=== PATIENT | female | born 1950 | race Caucasian/White ===

== ENCOUNTER → 2018-10-23 11:01 | Outpatient (CLI) | payer MEDICARE, OTHER, SELFPAY ==
[2018-10-27 16:01] LABS: Fecal Immunochemical Test NOT DETECTED
== END ==
PROVIDERS: Family Provider Physician Assistant; PCP Physician Assistant; Visit Provider Physician Assistant
DX: Z12.11 Encounter for screening for malignant neoplasm of colon (principal)
CPT/HCPCS: 82274

== ENCOUNTER → 2020-09-23 09:38 | Outpatient (CLI) | payer MEDICARE, SELFPAY ==
--- NOTE | 2020-09-23 | DI.MG.S_ITS ---
BILATERAL DIGITAL SCREENING MAMMOGRAM 3D/2D WITH CAD: 09/23/2020 CLINICAL: Routine screening. Family history of breast cancer. Comparison is made to exams dated: 09/07/2017 mammogram, 09/24/2015 mammogram, and 06/11/2007 mammogram - [facility]. There are scattered fibroglandular elements in both breasts. Current study was also evaluated with a Computer Aided Detection (CAD) system. No significant masses, calcifications, or other findings are seen in either breast. There has been no significant interval change. IMPRESSION: NEGATIVE There is no mammographic evidence of malignancy. A 1 year screening mammogram is recommended. This exam was interpreted at Station ID: [id number]. NOTE: For mammograms, a report in lay terms will be sent to the patient. Approximately 15% of breast malignancies will not be visualized mammographically. In the management of a palpable breast mass, a negative mammogram must not discourage biopsy of a clinically suspicious lesion. Electronically Signed By: Yony devi/ricardo:09/23/2020 12:54:37 letter sent: Normal Exam ACR BI-RADS Category 1: Negative 3341F
== END ==
PROVIDERS: Family Provider Physician Assistant; PCP Nurse Practitioner; Referring Provider Nurse Practitioner; Visit Provider Nurse Practitioner
DX: Z12.31 Encounter for screening mammogram for malignant neoplasm of breast (principal); Z80.3 Family history of malignant neoplasm of breast; M85.852 Other specified disorders of bone density and structure, left thigh; Z78.0 Asymptomatic menopausal state; Z87.891 Personal history of nicotine dependence
CPT/HCPCS: 77063; 77067; 77080

== ENCOUNTER → 2022-03-15 11:18 | Outpatient (CLI) | payer OTHER, SELFPAY ==
[2022-03-15 12:52] LABS: Hematocrit 40.4 % (36-46); Hemoglobin 13.6 g/dL (12.0-16.0); Mean Corpuscular HGB Conc 33.7 % (30-36); Mean Corpuscular Hemoglobin 30.1 PG (26-34); Mean Corpuscular Volume 89.5 fL (80-100); Platelet Count 217 X10^3/uL (150-400); Red Blood Cell Count 4.51 X10^6/uL (4.0-5.2); Red Cell Distribution Width 13.5 % (11.6-14.8); White Blood Cell Count 4.7 X10^3/uL (4.5-11.0)
[2022-03-15 13:21] LABS: Free T4, Direct Thyroxine 1.05 ng/dL (0.78-2.19)
[2022-03-15 13:50] LABS: Alanine Aminotransferase 18 IU/L (<35); Albumin 4.7 g/dL (3.5-5.0); Albumin Globulin Ratio 1.8 (1.0-2.8); Alkaline Phosphatase 51 U/L (38-126); Aspartate Aminotransferase 29 IU/L (14-36); Bilirubin Total 0.7 mg/dL (0.2-1.3); Blood Urea Nitrogen 13 mg/dL (7-17); Calcium 9.7 mg/dL (8.4-10.2); Carbon Dioxide 29 mmol/L (22-32); Chloride 103 mmol/L (98-107); Creatine Kinase 51 U/L (30-135); Estimated Glomerular Filt Rate > 60 mL/min (>60); Globulin 2.6 g/dL (1.7-4.1); Glucose 91 mg/dL (80-110); HEMOLYSIS < 15 (0-50); Potassium 4.3 mmol/L (3.4-5.1); Sodium 141 mmol/L (137-145); Total Protein 7.3 g/dL (6.3-8.2)
[2022-03-15 14:00] LABS: Troponin I < 0.012 ng/mL (0.01-0.034)
[2022-03-15 17:37] LABS: Creatinine Urine Random 12.5 mg/dL
[2022-03-15 18:59] LABS: Microalbumin Urine Random < 0.6 mg/dL (0-1.6)
== END ==
PROVIDERS: Family Provider Physician Assistant; PCP Nurse Practitioner; Referring Provider Nurse Practitioner; Visit Provider Nurse Practitioner
DX: R07.89 Other chest pain (principal)
CPT/HCPCS: 36415; 80053; 82043; 82550; 82570; 84439; 84443; 84481; 84484; 85027; 93005

== ENCOUNTER → 2022-03-24 11:41 | Outpatient (CLI) | payer OTHER, SELFPAY ==
--- NOTE | 2022-03-24 11:42 | DI.CT.S_ITS ---
PROCEDURE: CT LUNG LOW DOSE SCREENING INDICATIONS: History of smoking, chest pressure left TECHNIQUE: Noncontrast 2.0-2.5 mm thick sections acquired from the pulmonary apices to the posterior costophrenic angles. 7 mm thick axial MIP, and 5 mm coronal and sagittal reformats were then acquired. A low radiation dose technique was utilized. COMPARISON: None. FINDINGS: Image quality: Diagnostic, given the low radiation dose technique. Lungs and pleura: There is mild bilateral apical scarring. There is a 0.8 x 0.9 x 0.9 cm nodule at the lateral right lung base (series 3/image 309). There is a left lower lobe 8 mm in diameter nodule (series 3/image 255). Mediastinum: Heart size is normal. No pericardial effusion. No mediastinal adenopathy by size criteria. Thoracic aorta and central pulmonary arteries are normal in size. Esophagus is normal in caliber. No hiatal hernia. Bones and chest wall: No suspicious bony lesions. No vertebral body compression fractures. No axillary or supraclavicular adenopathy by size criteria. Thyroid gland is unremarkable. Abdomen: Visualized upper abdomen solid organs and bowel loops appear normal in the absence of contrast. IMPRESSION: 1. Solid 9 mm right and 8 mm left lower lobe pulmonary nodules. LUNG-RADS 4A; suspicious. Three-month follow-up CT recommended. Alternatively, PET-CT could be used. Dictated by: Albina Salazar M.D. on 03/24/2022 at 13:18 Approved by: Albina Salazar M.D. on 03/24/2022 at 13:28
== END ==
PROVIDERS: Family Provider Physician Assistant; PCP Nurse Practitioner; Referring Provider Nurse Practitioner; Visit Provider Nurse Practitioner
DX: R07.89 Other chest pain (principal); Z87.891 Personal history of nicotine dependence; R91.8 Other nonspecific abnormal finding of lung field
CPT/HCPCS: 71250

== ENCOUNTER → 2022-04-07 12:40 | Outpatient (CLI) | payer OTHER, SELFPAY ==
--- NOTE | 2022-04-07 12:42 | DI.MG.S_ITS ---
BILATERAL DIGITAL SCREENING MAMMOGRAM 3D/2D WITH CAD: 04/07/2022 CLINICAL: Routine screening. Family history of breast cancer. Comparison is made to exams dated: 09/23/2020 mammogram and 09/07/2017 mammogram - [facility]. There are scattered fibroglandular elements in both breasts. Current study was also evaluated with a Computer Aided Detection (CAD) system. No significant masses, calcifications, or other findings are seen in either breast. There has been no significant interval change. IMPRESSION: NEGATIVE There is no mammographic evidence of malignancy. A 1 year screening mammogram is recommended. This exam was interpreted at Station ID: [id number]. NOTE: For mammograms, a report in lay terms will be sent to the patient. Approximately 15% of breast malignancies will not be visualized mammographically. In the management of a palpable breast mass, a negative mammogram must not discourage biopsy of a clinically suspicious lesion. Electronically Signed By: Francisco javier/ricardo:04/07/2022 13:07:52 letter sent: Normal Exam ACR BI-RADS Category 1: Negative 3341F
== END ==
PROVIDERS: Family Provider Physician Assistant; PCP Nurse Practitioner; Referring Provider Nurse Practitioner; Visit Provider Nurse Practitioner
DX: Z12.31 Encounter for screening mammogram for malignant neoplasm of breast (principal); Z80.3 Family history of malignant neoplasm of breast
CPT/HCPCS: 77063; 77067

== ENCOUNTER → 2023-02-10 11:52 | Outpatient (CLI) | payer OTHER, SELFPAY | PROVIDERS: Family Provider Physician Assistant; PCP Nurse Practitioner; Referring Provider Surgery; Visit Provider Surgery | DX: K52.9 Noninfective gastroenteritis and colitis, unspecified (principal) | CPT/HCPCS: 87045; 87177; 87899 ==

== ENCOUNTER 2023-03-09 12:40 | Day surgery (SDC) | payer OTHER, SELFPAY ==
[2023-03-09] VITALS (7 sets, daily range): BP systolic 139–161; BP diastolic 73–87; PULSE 58–88; RESP 16–24; TEMP 36.2–36.6; O2SAT 99–100; BMI 21.1
--- NOTE | 2023-03-09 | PATH_ITS ---
[facility] Accession Number: [id number] No. of containers..04 Tissue . 01 Material submitted: . PART A: colon - COLON BIOPSIES PART B: colon - TRANSVERSE COLON BIOPSIES PART C: colon - LEFT COLON BIOPSIES PART D: rectum - RECTAL BIOPSIES . 01 Diagnosis: A-D. Colon, Transverse Colon, Left Colon, Rectum, Biopsies: Collagenous colitis. Negative for granulomas, dysplasia, and malignancy. [facility] 03/15/2023 1136 Local . 01 Electronically signed: . Paola Booth MD, Pathologist NPI- [id number] . 01 Gross description: . Part A: COLON BIOPSIES: Received in formalin are 2 fragment(s) of cohen, soft tissue measuring 0.2 x 0.2 x 0.2 cm to 0.3 x 0.3 x 0.2 cm submitted entirely in 1 cassette(s) Part B: TRANSVERSE COLON BIOPSIES: Received in formalin are 2 fragment(s) of cohen, soft tissue measuring 0.1 x 0.1 x 0.1 cm to 0.2 x 0.2 x 0.1 cm submitted entirely in 1 cassette(s) Part C: LEFT COLON BIOPSIES: Received in formalin are 2 fragment(s) of cohen, soft tissue measuring 0.2 x 0.2 x 0.2 cm to 0.3 x 0.1 x 0.1 cm submitted entirely in 1 cassette(s) Part D: RECTAL BIOPSIES: Received in formalin are 2 fragment(s) of cohen, soft tissue measuring 0.2 x 0.2 x 0.2 cm to 0.3 x 0.2 x 0.2 cm submitted entirely in 1 cassette(s) /RUDDY 03/13/2023 1934 Local . 01 Pathologist provided ICD-10: K52.89 . 01 CPT . 642682, 165244, 984161, 971378 Specimen Comment: A courtesy copy of this report has been sent to [phone] Performed at: 01 [facility] [address] [place] [address], [place], [place] [id number] MD Ankit Rockwell MD Phone: [phone]
[2023-03-09] MEDS: LACTATED RINGERS 1,000 ML 42 ML IV (13:38)
--- NOTE | 2023-03-09 14:25 | PM.PREOP ---
Pre-operative Note COVID-19 COVID-19 status: Not tested Interval Note History & Physical reviewed/Exam performed by Physician: Yes Changes to H&P: No ASA Class (for procedural sedation): II
--- NOTE | 2023-03-09 15:47 | PM.OP.COLON ---
Operative Date/Time/Diagnoses Date of procedure: 03/09/23 Time of procedure: 15:47 Pre-op diagnosis: Colon cancer screening and diarrhea Post-op diagnosis: same Procedure & Clinicians Study performed: Colonoscopy Same procedure as scheduled: Yes Surgeon: Adolph Sorensen Procedure Notes Procedure in detail: Surgeon: Adolph Sorensen MD Anesthesia: Priti Chandra DO Procedure: The patient was brought to the endoscopy suite, placed in left lateral decubitus position. The patient was connected to monitoring devices. A time-out was performed. Sedation was administered. Once the patient was adequately sedated, a digital rectal exam was performed and was normal. The scope was then inserted and advanced to the cecum where the appendiceal orifice was identified and photographed. The scope was then slowly withdrawn over greater than 6 minutes. The mucosa was thoroughly inspected. Random biopsies were taken from the right colon, transverse colon, left colon and rectum. There was rather significant sigmoid diverticulosis. The scope was retroflexed in the rectum. No other abnormalities were seen. The scope was straightened and removed. The patient was awakened and brought to recovery. Scope withdrawal time: 6 minutes Sedation time: 12 minutes EBL: 5 mL Findings: Sigmoid diverticulosis Post-procedure Disposition: PACU
--- NOTE | 2023-03-09 16:35 | SUR.PHASEII ---
pt states she is slightly nauseated and RN asked if she wanted anything for nausea. Pt states she feels fine and just wants to go home.
== END 2023-03-09 16:40 | disposition home or self-care (01) ==
PROVIDERS: Family Provider Physician Assistant; PCP Nurse Practitioner; Referring Provider Surgery; Visit Provider Surgery
PROC: 0DJD8ZZ Inspection of Lower Intestinal Tract, Via Natural or Artificial Opening Endoscopic (ICD-10-PCS; CPT 45378; principal; 2023-03-09 14:15)
DX: K52.831 Collagenous colitis (principal); K57.30 Diverticulosis of large intestine without perforation or abscess without bleeding
CPT/HCPCS: 45380; J2704

== ENCOUNTER → 2023-07-06 11:10 | Outpatient (CLI) | payer OTHER, SELFPAY ==
[2023-07-06 12:35] LABS: Add Manual Diff / Slide Review NO; Basophils Absolute Auto 0 /uL (0-100); Basophils Percent Auto 0.5 % (0-2); Eosinophils Absolute Auto 0 /uL (0-450); Eosinophils Percent Auto 0.7 % (2-4); Hematocrit 40.8 % (36-46); Lymphocytes Absolute Auto 1400 /uL (1100-4500); Lymphocytes Percent Auto 31.1 % (25-40); Mean Corpuscular HGB Conc 34.2 % (30-36); Mean Corpuscular Hemoglobin 30.3 PG (26-34); Mean Corpuscular Volume 88.5 fL (80-100); Monocytes Absolute Auto 500 /uL (0-900); Monocytes Percent Auto 10.5 % (3-14); Neutrophils Absolute Auto 2600 /uL (1500-7000); Neutrophils Percent Auto 57.2 % (50-75); Platelet Count 233 X10^3/uL (150-400); Red Cell Distribution Width 13.2 % (11.6-14.8); White Blood Cell Count 4.6 X10^3/uL (4.5-11.0)
[2023-07-06 13:02] LABS: Alanine Aminotransferase 18 IU/L (<35); Albumin 4.2 g/dL (3.5-5.0); Albumin Globulin Ratio 1.4 (1.0-2.8); Alkaline Phosphatase 60 U/L (38-126); Aspartate Aminotransferase 24 IU/L (14-36); BUN Creatinine Ratio 26.3 (6-22); Bilirubin Total 0.4 mg/dL (0.2-1.3); Blood Urea Nitrogen 15 mg/dL (7-17); Calcium 9.7 mg/dL (8.4-10.2); Carbon Dioxide 32 mmol/L (22-32); Chloride 101 mmol/L (98-107); Estimated Glomerular Filt Rate > 60 mL/min (>60); Globulin 3.1 g/dL (1.7-4.1); Glucose 104 mg/dL (80-110); HEMOLYSIS < 15 (0-50); Potassium 5.1 mmol/L (3.4-5.1); Sodium 139 mmol/L (137-145); Total Protein 7.3 g/dL (6.3-8.2)
[2023-07-06 13:28] LABS: TSH w/ Reflex to FT4 2.47 uIU/mL (0.47-4.68)
== END ==
PROVIDERS: Family Provider Physician Assistant; PCP Nurse Practitioner; Referring Provider Physician Assistant; Visit Provider Physician Assistant
DX: R19.7 Diarrhea, unspecified (principal); R63.4 Abnormal weight loss
CPT/HCPCS: 36415; 80053; 84443; 85025

== ENCOUNTER → 2023-07-06 11:13 | Outpatient (CLI) | payer OTHER, SELFPAY ==
--- NOTE | 2023-07-06 11:14 | DI.MG.S_ITS ---
BILATERAL DIGITAL SCREENING MAMMOGRAM 3D/2D WITH CAD: 07/06/2023 CLINICAL: Routine screening. Family history of breast cancer. Comparison is made to exams dated: 04/07/2022 mammogram, 09/23/2020 mammogram, and 09/07/2017 mammogram - [facility]. There are scattered areas of fibroglandular density in both breasts (category b / 25%-50% glandular tissue). Current study was also evaluated with a Computer Aided Detection (CAD) system. No significant masses, calcifications, or other findings are seen in either breast. There has been no significant interval change. IMPRESSION: NEGATIVE There is no mammographic evidence of malignancy. A 1 year screening mammogram is recommended. Based on the Tyrer Cuzick model (a risk assessment model) the patient's lifetime risk is 7.6% and her 10 year risk is 6.3%. According to the ACR, ACS, and NCCN guidelines, an annual breast MRI exam along with mammogram is recommended if the patient's lifetime risk is 20% or greater. This exam was interpreted at Station ID: [id number]. NOTE: For mammograms, a report in lay terms will be sent to the patient. Approximately 15% of breast malignancies will not be visualized mammographically. In the management of a palpable breast mass, a negative mammogram must not discourage biopsy of a clinically suspicious lesion. Electronically Signed By: Denisse huizar/ricardo:07/06/2023 17:04:12 letter sent: Normal Exam ACR BI-RADS Category 1: Negative 3341F
== END ==
PROVIDERS: Family Provider Physician Assistant; PCP Nurse Practitioner; Referring Provider Nurse Practitioner; Visit Provider Nurse Practitioner
DX: Z12.31 Encounter for screening mammogram for malignant neoplasm of breast (principal); Z80.3 Family history of malignant neoplasm of breast
CPT/HCPCS: 77063; 77067

== ENCOUNTER → 2023-09-14 15:00 | Outpatient (CLI) | payer OTHER, SELFPAY | PROVIDERS: Family Provider Physician Assistant; PCP Nurse Practitioner; Referring Provider Nurse Practitioner; Visit Provider Nurse Practitioner | DX: R19.5 Other fecal abnormalities (principal) | CPT/HCPCS: 87169 ==

== ENCOUNTER → 2023-09-15 10:27 | Outpatient (CLI) | payer OTHER, SELFPAY | PROVIDERS: Family Provider Physician Assistant; PCP Nurse Practitioner; Referring Provider Nurse Practitioner; Visit Provider Nurse Practitioner | DX: R19.5 Other fecal abnormalities (principal) | CPT/HCPCS: 87045; 87177; 87899 ==

== ENCOUNTER → 2023-09-25 09:00 | Outpatient (CLI) | payer OTHER, SELFPAY ==
[2023-09-25 10:42] LABS: Cholesterol 248 mg/dL (140-199); HDL Cholesterol 88 mg/dL (40-60); LDL Cholesterol Calculated 140 mg/dL (<100); Triglycerides 102 mg/dL (35-150)
--- NOTE | 2023-09-25 11:57 | DI.ECHO.S_ITS ---
[facility] +---------+ : : [address] : : : : [id number] : : : : Phone: [phone]---------+ Echocardiogram Report + + :Name: PAULO PERRY Study Date: 09/25/2023 Height: 66 in : :[facility] ReadingLocation: Weight: 127 lb : : Gender: Female BSA: 1.6 m2 : :: 1950 Age: 73 yrs BP: 134/88 mmHg: :Reason For Study: Cardiac Murmur : :Ordering Physician: MAHOGANY, : :MELISSA Performed By: Jana Ibarra : :Referring: MELISSA VIDES : + + Interpretation Summary Left ventricular ejection fraction is estimated to be 55. There are no obvious focal wall motion abnormalities noted but poor endocardial definition reduces the sensitivity for the detection of such. There is mild mitral regurgitation. There is mild to moderate aortic regurgitation. There is trace tricuspid regurgitation. Procedure: A two-dimensional transthoracic echocardiogram with color flow and Doppler was performed. The study quality was technically adequate. There is no prior echocardiogram noted for this patient. The patient was in normal sinus rhythm during the exam. Left Ventricle: The left ventricle is normal in size. Left ventricular ejection fraction is estimated to be 55. There are no obvious focal wall motion abnormalities noted but poor endocardial definition reduces the sensitivity for the detection of such. Diastolic parameters suggest a relaxation abnormality of the left ventricle, consistent with probable normal filling pressures. Right Ventricle: The right ventricle is normal in size and function. Atria: The left atrial size is normal. Right atrial size is normal. There is no Doppler evidence for an interatrial shunt. Mitral Valve: The mitral valve leaflets appear mildly thickened, but open well. There is no mitral valve stenosis. There is mild mitral regurgitation. Aortic Valve: The aortic valve is trileaflet. There is no aortic valve stenosis. There is mild to moderate aortic regurgitation. Tricuspid Valve: The tricuspid valve is normal. There is no tricuspid stenosis. There is trace tricuspid regurgitation. Pulmonic Valve: The pulmonic valve leaflets are thin and pliable; valve motion is normal. There is no pulmonic valvular stenosis. There is trace pulmonic regurgitation. Great Vessels: The aortic root is normal size. The ascending aorta is normal in size. The pulmonary artery is normal size. The IVC is of normal diameter and collapses greater than 50% with a sniff. This suggests a low right atrial pressure of 3 mm Hg. Pericardium/ Pleura There is no pericardial effusion. There is no pleural effusion. MMode/2D Measurements & Calculations LVIDd: 4.3 cm LVOT diam: 1.9 cm LVIDs: 3.0 cm Ao root diam: 3.0 cm FS: 30.2 % asc Aorta Diam: 3.1 cm EPSS: 0.40 cm IVSd: 0.70 cm LVPWd: 0.70 cm LV [place]. diameter/BSA (cm/m^2): 2.6 LV sys. diameter/BSA (cm/m^2): 1.8 LA A2 area: 13.7 cm2 RA area: 12.8 cm2 LA A4 area: 10.5 cm2 LA length (vol): 3.8 cm LA vol: 32.2 ml LA vol index: 19.5 ml/m2 RVD1 (basal): 3.3 cm LVLs ap4: 6.0 cm LVLd ap2: 8.2 cm TAPSE_phl: 2.3 cm LVLs ap2: 6.7 cm Doppler Measurements & Calculations Ao V2 max: 116.0 cm/sec LVOT Max Marlon: 82.5 cm/sec Ao V2 mean: 80.9 cm/sec LV V1 max P.7 mmHg Ao max P.0 mmHg LV V1 VTI: 19.9 cm Ao mean P.0 mmHg LAURYN(I,D): 2.0 cm2 Ao V2 VTI: 28.5 cm LAURYN(V,D): 2.0 cm2 sev ratio: 0.70 LAURYN indexed to BSA (cm^2/m^2): 1.2 MV E max marlon: 54.8 cm/sec TR max marlon: 206.0 cm/sec MV A max marlon: 77.1 cm/sec TR max P.0 mmHg MV E/A: 0.71 PA V2 max: 78.5 cm/sec Med Peak E' Marlon: 6.2 cm/sec PA V2 mean: 54.5 cm/sec E/E' med: 8.9 PA mean P.0 mmHg Lat Peak E' Marlon: 6.3 cm/sec PA pr(Accel): 19.6 mmHg E/E' lat: 8.8 E/e' average: 8.8 MV dec time: 0.30 sec SV(LVOT): 56.5 ml AV VR_phl: 0.71 LAURYN(VTI)/BSA_phl: 1.2 Reading Physician:01:34 PM
== END ==
PROVIDERS: Family Provider Physician Assistant; PCP Nurse Practitioner; Referring Provider Family Medicine; Visit Provider Family Medicine
DX: E78.5 Hyperlipidemia, unspecified (principal); R00.2 Palpitations; R01.1 Cardiac murmur, unspecified; I08.0 Rheumatic disorders of both mitral and aortic valves
CPT/HCPCS: 36415; 80061; 93306

== ENCOUNTER 2024-06-07 10:17 | Emergency (ER) | payer MEDICARE, SELFPAY ==
--- NOTE | 2024-06-07 10:25 | DI.RAD.S_ITS ---
PROCEDURE: XR ANKLE RT MIN 3V INDICATIONS: R lateral ankle pain after fall TECHNIQUE: 3 views of the ankle were acquired. COMPARISON: None. FINDINGS: Bones: Minimally displaced avulsion off the tip of the lateral malleolus. Ankle mortise is normally aligned. No suspicious bony lesions. Soft tissues: Lateral ankle swelling. No tibiotalar joint effusion. Achilles tendon appears normal. IMPRESSION: Minimally displaced avulsion off of the tip of the lateral malleolus. Dictated by: Milad Mcguire M.D. on 06/07/2024 at 10:47 Approved by: Milad Mcguire M.D. on 06/07/2024 at 10:48
--- NOTE | 2024-06-07 10:25 | ED.GENADULT ---
HPI - General Adult General Chief complaint: Extremity Injury, Lower Stated complaint: fall, r ankle injury Time Seen by Provider: 06/07/24 10:23 Source: patient Mode of arrival: Ambulatory Limitations: no limitations History of Present Illness HPI narrative: 73-year-old female here for evaluation of a right ankle injury after tripping and falling 2 days ago. No other injuries from the event. Has had continued discomfort and bruising and some swelling over right ankle since then. She has been ambulatory but it has hurt for her to walk. She does arrived with a ankle brace in place. Related Data Home Medications Medication Instructions Recorded Confirmed No Known Home Medications 03/16/23 09/06/23 Allergies Allergy/AdvReac Type Severity Reaction Status Date / Time latex [LATEX] Allergy Unknown PATIENT Verified 06/07/24 10:29 CAN'T REMEMBER oxycodone [OXYCODONE] AdvReac Severe MIGRAINE Verified 06/07/24 10:29 Review of Systems Constitutional Constitutional: Reports system reviewed and no additional complaints, except as documented Musculoskeletal Musculoskeletal: Reports system reviewed and no additional complaints, except as documented Integumentary/Breasts Skin/Breast: Reports system reviewed and no additional complaints, except as documented Neurologic Neurologic: Reports system reviewed and no additional complaints, except as documented Patient History Medical History Hyperlipidemia Palpitations Anxiety about health Lung nodule seen on imaging study Patient new to provider Colon cancer screening Breast cancer screening Hemorrhoids, internal (10/25/04) Diverticulosis of colon (10/25/04) Chicken pox Fibroids (~1999) Tinnitus (2012) CTS (carpal tunnel syndrome) Shoulder pain RLS (restless legs syndrome) (2012) Hayfever Ankle fracture (~1994) Surgical History History of rectal surgery (10/25/04) History of colonoscopy (10/25/04) Anesthesia History of myomectomy (~1999) Family History Mother Breast cancer Hypertension Hyperlipidemia Brother No problems noted. Father Melanoma Grandfather Rheumatoid arthritis Grandfather Stroke Grandmother No problems noted. Sister No problems noted. Sister No problems noted. Social History (Reviewed 06/07/24 @ 10:26 by RAVI Palomo marital status: unknown number of children: 4 household members: none lives independently: Yes occupational status: previously employed Smoking Status: Former smoker Tobacco: How many years used: 30 second hand exposure: No alcohol intake: current substance use type: marijuana Smoking Status: Former smoker alcohol intake frequency: a few times a month Substance Use Type: marijuana Exam Initial Vital Signs Initial Vital Signs: Vital Signs Temperature 97.9 F 06/07/24 10:30 Pulse Rate 65 06/07/24 10:30 Respiratory Rate 14 06/07/24 10:30 Blood Pressure 154/81 H 06/07/24 10:30 Pulse Oximetry 98 06/07/24 10:30 Oxygen Delivery Method Room Air 06/07/24 10:30 Cardio Pulses: dorsalis pedis present on the right Skin Other: Bruising to the lateral aspect of the right ankle. Neuro Sensory Exam: no sensory deficits noted Extrem Other: No proximal fibular tenderness. Minimal tenderness along the medial malleolus. Does have tenderness along the lateral malleolus. The Achilles tendon is intact. No tenderness in the dorsum of the foot. No tenderness of the base of the 5th metatarsal. Course Orders Ordered: ED Orders 06/07/24 10:25 XR ankle RT min 3V Stat Vital Signs Vital signs: Vital Signs - 8 hr 06/07/24 10:30 Temperature 97.9 F Pulse Rate 65 Respiratory Rate 14 Blood Pressure 154/81 H Pulse Oximetry 98 Oxygen Delivery Method Room Air Medical Decision Making Imaging Data Extremity x-ray #1: My Impression: Right distal fibula fracture MDM Narrative Medical decision making narrative: Patient does have x-ray findings of a right distal fibula fracture and she was tender over this area with bruising and swelling. She was placed in a orthopedic boot. We discussed the fracture with her. She can ambulate as tolerated with the boot. We discussed return precautions and follow-up instructions. She expressed understanding and agreement. Discharge Plan Departure Patient Disposition: Home Clinical Impression: Fracture of distal end of right fibula Instructions: How To Perform RICE (Rest, Ice, Compress, Elevate), How to Use a Walking Boot Activity Restrictions/Additional Instructions: The orthopedic boot should be worn for at least the next week and then passed that as needed for discomfort. You can take it off to shower and also to get dressed into sleep at night. Also recommend that you ice your ankle. You can contact the orthopedic department with the number provided below for follow-up. Return to the emergency department for new symptoms. Prescriptions: No Action No Known Home Medications Referrals: Coral Chavez ARNP [Primary Care Provider] - Mercedes Coelho MD [Physician] - Stand Alone Forms: Patient Portal/API
[2024-06-07 10:30] VITALS: BP 154/81; PULSE 65; RESP 14; TEMP 36.6; O2SAT 98; BMI 21.7
== END 2024-06-07 10:57 | disposition home or self-care (01) ==
PROVIDERS: Emergency Provider Emergency Medicine; Family Provider Physician Assistant; PCP Nurse Practitioner
DX: S82.401A Unspecified fracture of shaft of right fibula, initial encounter for closed fracture (principal); W01.0XXA Fall on same level from slipping, tripping and stumbling without subsequent striking against object, initial encounter
CPT/HCPCS: 73610; 99283

== ENCOUNTER → 2024-07-04 09:54 | Outpatient (CLI) | payer MEDICARE, SELFPAY ==
--- NOTE | 2024-07-04 09:55 | DI.RAD.S_ITS ---
PROCEDURE: XR SHOULDER LT MIN 2V INDICATIONS: left shoulder pain TECHNIQUE: 3 views of the shoulder were acquired. COMPARISON: None. FINDINGS: Bones: No fractures or dislocations. No suspicious bony lesions. Visualized ribs appear intact. Mild osteoarthritis to the AC joint and glenohumeral joint. Soft tissues: No suspicious soft tissue calcifications. IMPRESSION: 1. No acute fracture or dislocation. 2. Mild osteoarthritis to the acromioclavicular joint and glenohumeral joint. Dictated by: Pedro Cabezas M.D. on 07/04/2024 at 15:32 Approved by: Pedro Cabezas M.D. on 07/04/2024 at 15:36
--- NOTE | 2024-07-04 09:55 | DI.RAD.S_ITS ---
PROCEDURE: XR KNEE LT 3V INDICATIONS: left knee pain TECHNIQUE: 3 views of the knee were acquired. COMPARISON: None. FINDINGS: Bones: No fractures or dislocations. No suspicious bony lesions. There is patella [place]. Incidental fabella. Mild tricompartmental osteoarthritis. Soft tissues: No sizable joint effusion. No suspicious soft tissue calcifications. IMPRESSION: 1. No acute fracture or subluxation. 2. Mild tricompartmental osteoarthritis. 3. Patella celine. Dictated by: Pedro Cabezas M.D. on 07/04/2024 at 15:27 Approved by: Pedro Cabezas M.D. on 07/04/2024 at 15:32
[2024-07-04 11:17] LABS: Add Manual Diff / Slide Review NO; Basophils Absolute Auto 0 /uL (0-100); Basophils Percent Auto 0.9 % (0-2); Eosinophils Absolute Auto 200 /uL (0-450); Eosinophils Percent Auto 3.6 % (2-4); Hematocrit 39.7 % (36-46); Hemoglobin 13.2 g/dL (12.0-16.0); Lymphocytes Absolute Auto 1600 /uL (1100-4500); Lymphocytes Percent Auto 32.2 % (25-40); Mean Corpuscular HGB Conc 33.3 % (30-36); Mean Corpuscular Hemoglobin 29.7 PG (26-34); Mean Corpuscular Volume 89.2 fL (80-100); Monocytes Absolute Auto 600 /uL (0-900); Monocytes Percent Auto 11.5 % (3-14); Neutrophils Absolute Auto 2600 /uL (1500-7000); Neutrophils Percent Auto 51.8 % (50-75); Platelet Count 201 X10^3/uL (150-400); Red Blood Cell Count 4.45 X10^6/uL (4.0-5.2); White Blood Cell Count 4.9 X10^3/uL (4.5-11.0)
[2024-07-04 11:40] LABS: BUN Creatinine Ratio 33.8 (6-22); Blood Urea Nitrogen 22 mg/dL (7-17); Calcium 9.9 mg/dL (8.4-10.2); Carbon Dioxide 27 mmol/L (22-32); Chloride 104 mmol/L (98-107); Cholesterol 225 mg/dL (140-199); Estimated Glomerular Filt Rate > 60 mL/min (>60); Glucose 106 mg/dL (80-110); HDL Cholesterol 98 mg/dL (40-60); HEMOLYSIS < 15 (0-50); LDL Cholesterol Calculated 114 mg/dL (<100); Potassium 4.5 mmol/L (3.4-5.1); Sodium 139 mmol/L (137-145); Triglycerides 63 mg/dL (35-150)
== END ==
PROVIDERS: Family Provider Physician Assistant; PCP Nurse Practitioner Family; Referring Provider Nurse Practitioner Family; Visit Provider Nurse Practitioner Family
DX: M25.512 Pain in left shoulder (principal); E78.5 Hyperlipidemia, unspecified; M25.562 Pain in left knee; M85.89 Other specified disorders of bone density and structure, multiple sites; M19.012 Primary osteoarthritis, left shoulder; M17.12 Unilateral primary osteoarthritis, left knee; M22.8X2 Other disorders of patella, left knee
CPT/HCPCS: 36415; 73030; 73562; 80048; 80061; 85025

== ENCOUNTER → 2024-07-11 11:16 | Outpatient (CLI) | payer MEDICARE, SELFPAY ==
--- NOTE | 2024-07-11 11:18 | DI.MG.S_ITS ---
BILATERAL DIGITAL SCREENING MAMMOGRAM 3D/2D WITH CAD: 07/11/2024 CLINICAL: Routine screening. Family history of breast cancer. Comparison is made to exams dated: 07/06/2023 mammogram, 04/07/2022 mammogram, 09/23/2020 mammogram, and 09/07/2017 mammogram - [facility]. There are scattered areas of fibroglandular density in both breasts (category b / 25%-50% glandular tissue). Current study was also evaluated with a Computer Aided Detection (CAD) system. No significant masses, calcifications, or other findings are seen in either breast. There has been no significant interval change. IMPRESSION: NEGATIVE There is no mammographic evidence of malignancy. A 1 year screening mammogram is recommended. Based on the Tyrer Cuzick model (a risk assessment model) the patient's lifetime risk is 7.1% and her 10 year risk is 6.4%. According to the ACR, ACS, and NCCN guidelines, an annual breast MRI exam along with mammogram is recommended if the patient's lifetime risk is 20% or greater. This exam was interpreted at Station ID: [id number]. NOTE: For mammograms, a report in lay terms will be sent to the patient. Approximately 15% of breast malignancies will not be visualized mammographically. In the management of a palpable breast mass, a negative mammogram must not discourage biopsy of a clinically suspicious lesion. Electronically Signed By: Haylie garcía/ricardo:07/11/2024 16:41:07 letter sent: Normal Exam ACR BI-RADS Category 1: Negative 3341F
== END ==
PROVIDERS: Family Provider Physician Assistant; PCP Nurse Practitioner Family; Referring Provider Nurse Practitioner; Visit Provider Nurse Practitioner
DX: Z12.31 Encounter for screening mammogram for malignant neoplasm of breast (principal); Z80.3 Family history of malignant neoplasm of breast; R92.323 Mammographic fibroglandular density, bilateral breasts
CPT/HCPCS: 77063; 77067

== ENCOUNTER → 2024-07-19 09:41 | Outpatient (CLI) | payer MEDICARE, SELFPAY ==
--- NOTE | 2024-07-19 10:30 | DI.RAD.S_ITS ---
PROCEDURE: XR DEXA AXIAL SKELETON INDICATIONS: Osteopenia of multiple sites COMPARISON: [facility], [facility], XR DEXA AXIAL SKELETON, 09/23/2020, 9:54. FINDINGS: Lumbar Spine: Bone mineral density is 0.906 g/cm2, T score -1.3. There is interval 6.6% decrease in lumbar spine bone mineral density. Left Hip: Bone mineral density 0.742 g/cm2, T score -1.6. There is interval 6.8% decrease in left total hip bone mineral density. Left Femoral Neck: Bone mineral density 0.539 g/cm2, T score -2.8. There is interval 12.5% decrease in left femoral neck bone mineral density. Right Hip: Bone mineral density is 0.821 g/cm2, T score -1.0. There is interval 6.2% decrease in right total hip bone mineral density. Right Femoral Neck: Bone mineral density 0.613 g/cm2, T score -2.1. There is interval 1.8% decrease in left femoral neck bone mineral density. Fracture Risk Calculation (when applicable): 10-year fracture risk of a major osteoporotic fracture 17% and of a hip fracture 6.1%. (T score greater or equal to -1.0 to: NORMAL) (T score from -1.1 to -2.4: OSTEOPENIA) (T score less than or equal to -2.5: OSTEOPOROSIS) IMPRESSION: Osteoporosis with interval decrease of bone mineral density in lumbar spine and bilateral hip as above. Follow-up guidelines as follows: Osteoporosis: Consider a repeat DEXA and Vertebral Fracture Assessment (VFA) exam in 2 years or sooner if medically necessary, to reassess this patient's status. Osteopenia: Consider a repeat DEXA in 2-3 years to reassess this patient's status, or if there is a new clinical indication. Normal: Consider a repeat DEXA in 5 years or sooner, or if there is a new clinical indication. All treatment decisions require clinical judgment and consideration of individual patient factors, including patient preferences, comorbidities, previous drug use, risk factors not captured in the FRAX model (e.g., frailty, falls, vitamin D deficiency, increased bone turnover, interval significant decline in bone density ) and possible under- or over-estimation of fracture risk by FRAX. In addition, the NOF Guide recommends that FDA-approved medical therapies be considered in postmenopausal women and men age >= 50 years with a: * Hip or vertebral (clinical or morphometric) fracture * T-score of <=-2.5 at the spine or hip * Ten-year fracture probability by FRAX of >= 3% for hip fracture or >=20% for major osteoporotic fracture. People with diagnosed cases of osteoporosis or at high risk for fracture should have regular bone mineral density tests. For patients eligible for Medicare, routine testing is allowed once every 2 years. The testing frequency can be increased to one year for patients who have rapidly progressing disease, those who are receiving or discontinuing medical therapy to restore bone mass, or have additional risk factors. Dictated by: Jose Baxter M.D. on 07/19/2024 at 13:57 Approved by: Jose Baxter M.D. on 07/19/2024 at 13:59
== END ==
PROVIDERS: Family Provider Physician Assistant; PCP Nurse Practitioner Family; Referring Provider Nurse Practitioner Family; Visit Provider Nurse Practitioner Family
DX: S82.831A Other fracture of upper and lower end of right fibula, initial encounter for closed fracture (principal); M85.89 Other specified disorders of bone density and structure, multiple sites; M81.0 Age-related osteoporosis without current pathological fracture; X58.XXXA Exposure to other specified factors, initial encounter
CPT/HCPCS: 77080

== ENCOUNTER → 2025-08-13 11:51 | Outpatient (CLI) | payer MEDICARE, SELFPAY ==
[2025-08-13 12:29] LABS: Add Manual Diff / Slide Review NO; Hematocrit 41.5 % (36-46); Hemoglobin 13.8 g/dL (12.0-16.0); Lymphocytes Absolute Auto 1600 /uL (1100-4500); Mean Corpuscular HGB Conc 33.3 % (30-36); Mean Corpuscular Hemoglobin 29.3 PG (26-34); Mean Corpuscular Volume 88.0 fL (80-100); Platelet Count 203 X10^3/uL (150-400)
[2025-08-13 12:49] LABS: Blood Urea Nitrogen 17 mg/dL (7-17); Calcium 9.9 mg/dL (8.4-10.2); Carbon Dioxide 28 mmol/L (22-32); Chloride 104 mmol/L (98-107); Cholesterol 216 mg/dL (140-199); Estimated Glomerular Filt Rate > 60 mL/min (>60); Glucose 94 mg/dL (70-99); HDL Cholesterol 99 mg/dL (40-60); HEMOLYSIS < 15 (0-50); Sodium 140 mmol/L (137-145); Triglycerides 60 mg/dL (35-150)
[2025-08-13 12:50] LABS: Potassium 5.4 mmol/L (3.4-5.1)
== END ==
PROVIDERS: Family Provider Physician Assistant; PCP Nurse Practitioner Family; Referring Provider Nurse Practitioner Family; Visit Provider Nurse Practitioner Family
DX: E78.5 Hyperlipidemia, unspecified (principal)
CPT/HCPCS: 36415; 80048; 80061; 85025

== ENCOUNTER → 2025-08-16 10:43 | Outpatient (CLI) | payer MEDICARE, SELFPAY ==
--- NOTE | 2025-08-16 10:44 | DI.MG.S_ITS ---
MM screening mammo BI: 08/16/2025. BI-RADS: 1 CLINICAL: 75-year old female for bilateral screening mammogram. Tyrer-Cuzick lifetime risk of 2.9%. Current reported family history of breast cancer: mother. PRIOR EXAMS 07/11/2024, 07/06/2023, 04/07/2022, 09/23/2020. MAMMOGRAPHY TECHNIQUE: 2D and 3D (tomosynthesis) digital mammographic views obtained, with additional images as needed for full coverage. Current study was also evaluated with a Computer Aided Detection (CAD) system. DENSITY B. There are scattered areas of fibroglandular density. MAMMOGRAPHY FINDINGS Bilateral: No suspicious mass, asymmetry, microcalcification, or other abnormality seen. IMPRESSION: * No evidence of malignancy. RECOMMENDATIONS Bilateral * Annual screening mammography. OVERALL ASSESSMENT CATEGORY BI-RADS-1: Negative. The [employer] recommends annual screening mammography beginning at age 40 for women with average risk of breast cancer. ELECTRONICALLY SIGNED: Denisse Sandoval M.D. on 08/18/2025 at 10:43:36 AM PT Interpreting Station ID: [id number]
== END ==
PROVIDERS: Family Provider Physician Assistant; PCP Nurse Practitioner Family; Referring Provider Nurse Practitioner Family; Visit Provider Nurse Practitioner Family
DX: Z12.31 Encounter for screening mammogram for malignant neoplasm of breast (principal); Z80.3 Family history of malignant neoplasm of breast
CPT/HCPCS: 77063; 77067